=== PATIENT | female | born 1995 | race Caucasian/White ===

== ENCOUNTER 2018-07-30 21:51 | Emergency (ER) | payer BC, SELFPAY ==
[2018-07-30 21:59] VITALS: BP 135/88; PULSE 90; RESP 20; TEMP 36.8; O2SAT 100
--- NOTE | 2018-07-30 22:06 | ED.GENADUL_ITS ---
Discharge Plan Disposition Patient Disposition: HOME Condition: Good Discharge Details Chief Complaint: RespSymp Clinical Impression: URI (upper respiratory infection), Influenza A Reason For Visit: fever, chills , congestion Primary Care Provider: Pau Perry ED Provider: Karson Catrer Home Meds and New Rx's Prescriptions: New benzonatate [Tessalon Perles] 100 mg capsule 100 mg PO QID PRN (Reason: cough) Qty: 30 RF: 0 No Action ProAir HFA 8.5 GM HFA aerosol inhaler 2 puff Inhalation Q4H PRN Qty: 1 RF: 1 propranolol 20 MG tablet 1 tab PO BID RF: 0 sertraline 50 MG tablet 1 tab PO DAILY RF: 0 norgestrel-ethinyl estradiol [Cryselle (28)] 1 EACH tablet 1 tab PO DAILY RF: 0 Cryselle (28) 0.3-30 mg-mcg Tablet RF: 0 Discharge Instructions Instructions: Upper Respiratory Infection (ED) Additional Instructions: Please take medication as directed. If you notice any worsening of your symptoms, or any new symptoms such as vomiting, diarrhea, fever, chills, shortness of breath, chest pain, numbness, weakness, or fainting , please return immediately to the emergency department for reevaluation. Please follow up with your primary care provider as soon as possible for reassessment and reevaluation. As always, it was a pleasure participating in your medical care today. Stand Alone Forms: Work Release Referrals: Pau Perry [Primary Care Provider] - Medical Decision Making This is a pleasant 22-year-old female who presents with 3-4 days of cough, congestion, runny nose, aches, myalgias. Clinical signs and symptoms are concerning for viral upper respiratory infection, differential includes influenza. No abdominal tenderness is present on exam, no red flags of nuchal rigidity, neck stiffness, fever, hematemesis, kayleigh bloody diarrhea, recent antibiotic use, or other historical risk factors. Patient appears well-hydrated and has reassuring vital signs. We will prescribe Tessalon Perles for cough suppression. She is not a candidate for Tamiflu secondary to the duration of her symptoms. We will recommend continued hydration, fluid intake, and rest. 10:36 PM Influenza is positive. The patient has reassuring vital signs, no evidence of meningitis or other significant comorbidities or illness. She will be discharged home with close follow-up. I have extensively reviewed the treatment plan and discharge instructions with the patient. I have addressed all patient concerns at this time. The patient was made aware of what symptoms to monitor for that would warrant a return to the emergency department. Discussed the plan with the patient, they demonstrate verbal understanding and agreement with our assessment and plan at this time. HPI General Date/Time Provider Initiated Documentation: 07/30/18 21:52 . HPI Narrative: Peter dickson is a 22-year-old female with a past medical history of asthma who presents today for evaluation of 3 days of cough, congestion, runny nose, aches, chills, and occasional posttussive emesis. She denies any independent nausea or vomiting, she denies any abdominal pain, abdominal tenderness, bowel or bladder incontinence, dysuria, hematuria. She denies any chest pain or shortness of br eath. Her cough is productive with yellow sputum. She denies any significant sore throat, neck pain or headache. Patient did have sick contacts with similar symptoms which was her . His symptoms are similar but slightly less severe. Patient denies any other modifying factors at this time. She has no other complaints at this time. She denies any IV or illicit drug use, pertinent family history, or recent surgical history Related Data Home Medications Medication Instructions Recorded Confirmed ProAir HFA 2 puff INHALATION Q4H PRN #1 09/23/13 07/30/18 inhaler propranolol 1 tab PO BID 10/02/15 07/30/18 sertraline 1 tab PO DAILY 10/02/15 07/30/18 norgestrel-ethinyl estradiol 1 tab PO DAILY 04/28/17 04/28/17 [Kaylen (28)] benzonatate [Tessalon Perles] 100 mg PO QID PRN #30 cap 07/30/18 norgestrel-ethinyl estradiol 07/30/18 [Kaylen (28)] Previous Rx's Medication Instructions Recorded benzonatate [Tessalon Perles] 100 mg PO QID PRN #30 cap 07/30/18 Allergies Allergy/AdvReac Type Severity Reaction Status Date / Time sulfamethoxazole AdvReac Unknown Diarrhea Unverified 07/30/18 22:02 [From Bactrim] trimethoprim [From Bactrim] AdvReac Unknown Diarrhea Unverified 07/30/18 22:02 Review of Systems Review of Systems All systems reviewed & are unremarkable except as noted in HPI and below PFSH Social History Smoking/Tobacco Use Status: Never Exam Narrative Exam Narrative: 1.Const: Well-nourished, Well-developed, appearing stated age 2.Eyes: PERRL, no conjunctival injection, and symmetrical lids. 3.ENT: Atraumatic external nose and ears. Moist MM. Neck: Symmetric, trachea midline, No thyromegaly. No significant erythema in the posterior oropharynx. No evidence of tonsillar exudates. Patient demonstrates good movement of cervical neck. There is no nuchal rigidity, no nuchal tenderness. Patient is able to flex the neck without any difficulty or significant pain. Negative Kernig's and Brudzinski sign. 4.CVS: +S1/S2, No murmurs or gallops. Peripheral pulses 2+ and equal in all extremities. Brisk capillary refill in all extremities. 5.RESP: Unlabored respiratory effort. Clear to auscultation bilaterally. No wheezes rales or rhonchi 6.GI: Soft, Nontender/Nondistended, No hepatosplenomegaly. No guarding or rebound. 7.MSK: Normocephalic/Atraumatic, Extremities w/o deformity or ttp No cyanosis or clubbing, Normal movement of all extremities 8.Skin: Warm, Dry. No rashes or lesions. 9.Neuro: religion department chair II-XII grossly intact. Sensation grossly intact, no focal neurologic deficits. 10.Psych: (AAO) x3. Appropriate mood and affect
[2018-07-30 22:34] VITALS: RESP 20; TEMP 37.6
== END 2018-07-30 22:51 | disposition home or self-care (01) ==
LOC: ER 22:27
PROVIDERS: Emergency Provider Student in an Organized Health Care Education/Training Program; PCP Nurse Practitioner Family
DX: J11.1 Influenza due to unidentified influenza virus with other respiratory manifestations (principal)
CPT/HCPCS: 87449; 99283

== ENCOUNTER 2022-08-23 18:46 | Outpatient (REF) | payer OTHER, SELFPAY ==
--- NOTE | 2022-08-23 13:00 | PAPFT_PTH ---
PATIENT: Marissa Shanks LOC: [facility] U#:[id number] AGE/SX: 26/F ROOM: RE08/23/[address]: JESSICA RING : 1995 BED: DIS: 08/23/2022 SPEC #: [id number] RECD: 08/24/22 13:03 STATUS: KIERAN REQ #: [id number] LJ: 08/23/22 13:[address]: Jessica Ring DEPT: [facility] [place] Cytology RECD BY: Charis Farmer ENTERED: 08/24/22 13:04 SP TYPE: PAPFT OTHR DR: Pau Perry Tissues: 1 - CX/ENDOCX FOR PAP SMEARS Procedures: PAP THIN PREP/[facility] Screening Comments: [id number] (CHLAMYDIA/GC)
[2022-08-25 12:56] LABS: Chlamydia Result Negative (Negative); GC Result Negative (Negative)
== END 2022-08-23 18:47 | disposition home or self-care (01) ==
LOC: NCHCN 18:46
PROVIDERS: PCP Nurse Practitioner Family; Visit Provider Nurse Practitioner Family
DX: Z12.4 Encounter for screening for malignant neoplasm of cervix (principal); Z11.3 Encounter for screening for infections with a predominantly sexual mode of transmission
CPT/HCPCS: 87491; 87591; 88142

== ENCOUNTER 2022-08-31 13:45 | Outpatient (REF) | payer OTHER, SELFPAY ==
[2022-09-01 11:51] LABS: HIV-1/2 Ag & Ab Screen Negative (Negative)
[2022-09-01 12:20] LABS: Syphilis Serology (RPR) Negative (Negative)
[2022-09-01 13:00] LABS: Hepatitis C Ab w Rflx HCV PCR Negative (Negative)
== END 2022-08-31 13:46 | disposition home or self-care (01) ==
LOC: NCHCN 13:45
PROVIDERS: PCP Nurse Practitioner Family; Visit Provider Nurse Practitioner Family
DX: Z11.3 Encounter for screening for infections with a predominantly sexual mode of transmission (principal); Z11.4 Encounter for screening for human immunodeficiency virus [HIV]; Z11.59 Encounter for screening for other viral diseases
CPT/HCPCS: 86803; 87389; 86592

== ENCOUNTER 2022-09-06 12:23 | Outpatient (REF) | payer OTHER, SELFPAY | END 2022-09-06 12:24 | disposition home or self-care (01) | LOC: NCHCN 12:23 | PROVIDERS: PCP Nurse Practitioner Family; Visit Provider Nurse Practitioner Family | DX: L29.2 Pruritus vulvae (principal); N89.8 Other specified noninflammatory disorders of vagina | CPT/HCPCS: 87480; 87510; 87660 ==

== ENCOUNTER 2023-11-15 09:12 | Emergency (ER) | payer OTHER, SELFPAY ==
[2023-11-15 09:14] VITALS: BP 137/87; PULSE 91; RESP 16; TEMP 36.7; O2SAT 99
--- NOTE | 2023-11-15 09:15 | DI.RAD_ITS ---
Exam(s) XR FOOT RT COMPLETE EXAM: XR FOOT RT COMPLETE CLINICAL HISTORY: pain s/p fall. TECHNIQUE: 2D digital imaging was performed. Three views. COMPARISON: No exams were available for comparison FINDINGS: BONES: No acute fracture is present. No bony destructive lesion is seen. Small enthesophyte at the A chilles insertion. Tiny plantar calcaneal spur. JOINTS: No dislocation present. Minimal degenerative changes of 1st MTP joint. SOFT TISSUE: Normal. IMPRESSION: Unremarkable radiographs of the right foot. DATA REPOSITORY: RADIATION DOSE DELIVERED:
--- NOTE | 2023-11-15 09:29 | ED.GENADUL_ITS ---
Discharge Plan Disposition Patient Disposition: Home Condition: Stable Discharge Details Clinical Impression: Right foot sprain Primary Care Provider: Pau Prery ED Provider: Dean Pacheco Home Meds and New Rx's Prescriptions: Continued albuterol sulfate [ProAir HFA] 8.5 GM HFA aerosol inhaler 2 puff Inhalation Q4H PRN Qty: 1 Cryselle (28) 1 EACH tablet 1 tab PO DAILY Cryselle (28) 0.3-30 mg-mcg Tablet trazodone 50 mg tablet Patient Comments: TAKE ONE TABLET BY MOUTH AT BEDTIME FOR INSOMNIA fluoxetine 20 mg capsule Patient Comments: TAKE ONE CAPSULE BY MOUTH EVERY DAY Discharge Instructions Additional Instructions: Your x-ray did not show any broken bones, use the crutches and walking boot as needed until pain-free. Follow-up with your primary care provider within 1 week if not improving You can take 1000 mg of Tylenol and 600 mg of ibuprofen every 6 hours as needed If you feel more ill or have severe worsening of pain return to the emergency department for reevaluation Stand Alone Forms: Work Release HPI General Date/Time Provider Initiated Documentation: 11/15/23 09:12 . Limitations to Documentation: no limitations . Information obtained by: patient . History of Present Illness 28 year old F presents to the emergency department with the chief complaint of Right foot pain, described as moderate, Quality is described as aching, and it has been constant. No relieving factors improve symptom(s), No exacerbating factors reported . Patient notes no other symptoms.. Patient did receive the following treatments prior to arrival, none Related Data Home Medications Medication Instructions Recorded Confirmed albuterol sulfate 90 mcg/actuation 2 puff inhalation Q4H PRN ##1 09/23/11/15/23 aerosol inhaler (ProAir HFA) norgestrel 0.3 mg-ethinyl 1 tab PO DAILY 04/28/17 11/15/23 estradiol 30 mcg tablet (Cryselle (28)) norgestrel 0.3 mg-ethinyl 07/30/18 estradiol 30 mcg tablet (Cryselle (28)) fluoxetine 20 mg capsule mg 11/15/23 trazodone 50 mg tablet mg 11/15/23 Allergies Allergy/AdvReac Type Severity Reaction Status Date / Time sulfamethoxazole AdvReac Unknown Diarrhea Unverified 11/15/23 09:19 [From Bactrim] trimethoprim [From Bactrim] AdvReac Unknown Diarrhea Unverified 11/15/23 09:19 General Stated Complaint: Orthopedic EDITH: 4 Review of Systems All systems reviewed & are unremarkable except as noted in HPI and below Constitutional Constitutional: Denies chills, Denies fever(s) and Denies weakness Cardiovascular Cardiovascular: Denies chest pain and Denies dyspnea Respiratory Respiratory: Denies cough and Denies dyspnea Gastrointestinal Gastrointestinal: Denies abdominal pain, Denies nausea and Denies vomiting Musculoskeletal Musculoskeletal: Denies joint swelling Neurologic Neurologic: Denies weakness Exam Const General: no acute distress Orientation: alert HENMT Head: normal to inspection Ears: external ears normal General nose exam: external nose normal Mouth: moist mucous membranes Eyes General: appearance normal, both eyes and all related structures Neck Neck: normal visual inspection Resp Effort & Inspection: normal respiratory effort and able to speak in complete sentences Cardio Rate: regular rate Skin General skin exam: no rashes or lesions noted Neuro General: patient alert and patient oriented x3 Extrem General: normal to inspection, full ROM and capillary refill normal Psych Mental Status: mental status grossly normal Course Vital Signs Vital signs: Vital Signs Temperature 36.7 C 11/15/23 09:14 Pulse 91 H 11/15/23 09:14 Respiratory Rate 16 11/15/23 09:14 Blood Pressure 137/87 11/15/23 09:14 Pulse Oximetry 99 11/15/23 09:14 Temperature 36.7 C 11/15/23 09:14 Temperature Source Temporal Artery Scan 11/15/23 09:14 Pulse 91 H 11/15/23 09:14 Respiratory Rate 16 11/15/23 09:14 Respiratory Effort Normal 11/15/23 09:20 Blood Pressure 137/87 11/15/23 09:14 Pulse Oximetry 99 11/15/23 09:14 Oxygen Delivery Method Room Air 11/15/23 09:14 Oxygen Flow Rate 0 11/15/23 09:14 Pain Level 5 11/15/23 09:20 Medical Decision Making 28-year-old female comes in with right foot pain. She says last night she was getting off the couch and tripped and inverted her right foot. Denies hitting her head or loss of consciousness. She is alert and oriented x 4 on arrival, localizes the pain to the right lateral midfoot over the fifth metatarsal, has no visible or palpable deformities, has full range of motion at the ankle and no tenderness in the ankle. Has full range of motion of her toes and intact sensation and pulses. Will obtain x-rays to evaluate for fracture of the foot. X-ray unremarkable, suspect foot sprain, will have her use a walker short walking boot and crutches as needed. She is stable for discharge, advised to follow-up with her PCP if not improving within a week and return precautions given Differential Diagnosis Differential Diagnosis: Sprain, contusion, fracture Imaging Data Radiologic Study: Attestation: I personally reviewed and interpreted this imaging study as follows: Imaging: X-Ray Radiologist's impression: No acute findings Quality:SDOH Health Related Social Needs: No Data to Display PFSH All Active Problems (Updated 11/15/23 @ 10:35 by Dean Pacheco MD) Right foot sprain (Acute) Social History Smoking/Tobacco Use Status: Never Smoking risk assessment performed?: Yes Drug use: Never Do you feel safe in your relationship?: Yes
[2023-11-15] MEDS: Ibuprofen 600 MG TAB PO (10:04)
[2023-11-15 10:38] VITALS: BP 130/78; PULSE 70; RESP 16; O2SAT 100
[2023-11-15 10:47] VITALS: BP 130/78; PULSE 70; RESP 16; O2SAT 100
== END 2023-11-15 10:59 | disposition home or self-care (01) ==
PROVIDERS: Emergency Provider Emergency Medicine; PCP Nurse Practitioner Family
DX: S93.601A Unspecified sprain of right foot, initial encounter (principal); X50.1XXA Overexertion from prolonged static or awkward postures, initial encounter; Y93.01 Activity, walking, marching and hiking
CPT/HCPCS: 99283; 73630